=== PATIENT | female | born 2000 | race Caucasian/White ===

== ENCOUNTER → 2019-04-02 | Day surgery (SDC) | payer BC ==
[2019-03-29 15:04] VITALS: BMI 24.3
[~2019-04-02] MED LIST: BUPIVACAINE (PF) 0.5% 30 ML VIAL SQ ONE; DEXAMETHASONE SOD PHOSPHATE 10 MG/ML 1 ML VIAL IV ONE; GLYCOPYRROLATE 0.2 MG/ML 2 ML VIAL ONE; HEPARIN SODIUM,PORCINE 5,000 UNIT/ML 1 ML VIAL SQ ONE; HYDROmorphone 0.5 MG/0.5 ML SYRINGE IVP PRN; KETAMINE 10 MG/ML 20 ML VIAL ONE; LACTATED RINGERS 1,000 ML IV SCH; LIDOCAINE 1% 20 ML VIAL (10MG/ML) FOR IV START SQ ONE; LIDOCAINE 1% INJ 10MG/ML (20 ML MDV) ONE; MIDAZOLAM 2 MG/2 ML VIAL IV PRN; MIDAZOLAM 2 MG/2 ML VIAL ONE; ONDANSETRON 4 MG/2 ML VIAL IVP ONE; PROPOFOL 10 MG/ML 20 ML VIAL IV ONE; fentaNYL (PF) 50 MCG/ML 2 ML AMP ONE; metroNIDAZOLE-NS PMX 500 MG in SALINE 1 100ML.BAG IVPB ONE
[2019-04-02 09:56] VITALS: RESP 16
--- NOTE | 2019-04-02 11:16 | P.GSHP ---
History of Present Illness H&P Date: 04/02/19 Chief Complaint: Pilonidal cyst This a 18-year-old female with history of pilonidal cyst. Patient resents today for excision of pilonidal cyst Past Medical History Past Medical History: Asthma Additional Past Medical History / Comment(s): pilonidal cyst, hx of childhood asthma, hx of kidney stones, hx of pre-ca moles History of Any Multi-Drug Resistant Organisms: None Reported Past Surgical History: Adenoidectomy, Tonsillectomy Additional Past Surgical History / Comment(s): broken nose repaired, moles removed Past Anesthesia/Blood Transfusion Reactions: No Reported Reaction Smoking Status: Never smoker Medications and Allergies Home Medications Medication Instructions Recorded Confirmed Type No Known Home Medications 03/29/19 04/02/19 History Allergies Allergy/AdvReac Type Severity Reaction Status Date / Time procaine [From Novocain] Allergy throat and Verified 04/02/19 09:41 mouth itching Surgical - Exam Vital Signs Temp Pulse Resp BP Pulse Ox 98.3 F 75 16 125/66 99 04/02/19 09:55 04/02/19 09:55 04/02/19 09:55 04/02/19 09:55 04/02/19 09:55 - General well developed, well nourished, no distress - Eyes PERRL - ENT normal pinna - Neck no masses - Respiratory normal expansion - Cardiovascular Rhythm: regular - Abdomen Abdomen: soft, non tender Assessment and Plan Assessment: Pilonidal cyst. We'll perform excision. Patient aware that the wound will be packed after surgery. Patient will need to provide local wound care for wound healing.
[2019-04-02 12:03] VITALS: TEMP 97.8
--- NOTE | 2019-04-02 13:01 | P.OP ---
Date of Procedure: 04/02/19 Preoperative Diagnosis: Pilonidal cyst Postoperative Diagnosis: Pilonidal cyst with abscess Procedure(s) Performed: Excision pilonidal cyst Anesthesia: MAC Surgeon: Eric Valdes Estimated Blood Loss (ml): 5 Pathology: other (Pilonidal cyst) Condition: stable Description of Procedure: The patient's placed on the operative table in the jackknife prone position she received IV local sedation. Her pyrosis was prepped and draped usual sterile fashion. Elliptical skin incision was made around the cyst after it was adequately anesthetized 1% local Xylocaine. Then using cautery and phimosis excised. The Bovie is used for hemostasis. The wound was packed with wet-to-dry Kerlix. Patient top she will was sent to recovery room in stable condition.
[2019-04-02 13:16] VITALS: BP 102/65; PULSE 70
== END | disposition home or self-care (01) ==
LOC: OR 09:30
PROVIDERS: ATTEND Surgery
DX: L05.01 Pilonidal cyst with abscess (principal); J45.909 Unspecified asthma, uncomplicated; Z88.4 Allergy status to anesthetic agent; Z87.442 Personal history of urinary calculi; Z87.2 Personal history of diseases of the skin and subcutaneous tissue; Z90.89 Acquired absence of other organs; Z98.890 Other specified postprocedural states
CPT/HCPCS: 81025; 88304; 11770; J2250; J1644; J1100; J0690; J2405; J2001; J3010; J2704

== ENCOUNTER 2022-11-11 07:14 | Emergency (ER) | payer BC ==
[2022-11-11 07:23] VITALS: BP 123/85; PULSE 77; RESP 16; TEMP 97.7
[2022-11-11] MEDS ORDERED: SODIUM CHLORIDE 0.9% 500 ML 500 ML IV STA (07:34)
--- NOTE | 2022-11-11 07:46 | ED ---
General Adult HPI - General Chief complaint: Abdominal Pain Stated complaint: Side pain left Time Seen by Provider: 11/11/22 07:20 Source: patient, RN notes reviewed, old records reviewed Mode of arrival: ambulatory Limitations: no limitations - History of Present Illness Initial comments: This is a 21-year-old female who presents emergency department stating she woke up at 5:00 in the morning with left-sided flank pain. Patient states is quite severe when it comes on with any kind of goes away. Patient states been intermittent ever since. Patient states she's had some pink urine. Patient states she's had a history of kidney stones in the past and reminds of kidney stones. Patient denies any urinary frequency or dysuria but she does have he maturia. Patient denies any vomiting or nausea. Patient states currently she took 2 Aleve and is feeling better. Patient denies any fevers chills per patient denies any anterior abdominal pain. - Related Data Previous Rx's Medication Instructions Recorded Docusate [Colace] 100 mg PO BID #20 capsule 04/02/19 HYDROcodone/APAP 5-325MG [[place] 1 tab PO Q6HR PRN #10 tab 04/02/19 5-325] Ketorolac [Toradol] 10 mg PO Q6HR #15 tab 11/11/22 Allergies Allergy/AdvReac Type Severity Reaction Status Date / Time procaine [From Novocain] Allergy throat and Verified 11/11/22 07:23 mouth itching Review of Systems ROS Statement: Those systems with pertinent positive or pertinent negative responses have been documented in the HPI. ROS Other: All systems not noted in ROS Statement are negative. Past Medical History Past Medical History: Asthma Additional Past Medical History / Comment(s): pilonidal cyst, hx of childhood asthma, hx of kidney stones, hx of pre-ca moles History of Any Multi-Drug Resistant Organisms: None Reported Past Surgical History: Adenoidectomy, Tonsillectomy Additional Past Surgical History / Comment(s): broken nose repaired, moles removed Past Anesthesia/Blood Transfusion Reactions: No Reported Reaction Past Psychological History: No Psychological Hx Reported Smoking Status: Never smoker Past Alcohol Use History: Occasional Past Drug Use History: None Reported General Exam - General Exam Comments Initial Comments: GENERAL: Patient is well-developed and well-nourished. Patient is nontoxic and well- hydrated and is in mild distress. ENT: Neck is soft and supple. No significant lymphadenopathy is noted. Oropharynx is clear. Moist mucous membranes. Neck has full range of motion without eliciting any pain. EYES: The sclera were anicteric and conjunctiva were pink and moist. Extraocular movements were intact and pupils were equal round and reactive to light. Eyelids were unremarkable. PULMONARY: Unlabored respirations. Good breath sounds bilaterally. No audible rales rhonchi or wheezing was noted. CARDIOVASCULAR: There is a regular rate and rhythm without any murmurs gallops or rubs. ABDOMEN: Soft and nontender with normal bowel sounds. SKIN: Skin is clear with no lesions or rashes and otherwise unremarkable. NEUROLOGIC: Patient is alert and oriented x3. Cranial nerves II through XII are grossly intact. Motor and sensory are also intact. Normal speech, volume and content. Symmetrical smile. MUSCULOSKELETAL: Normal extremities with adequate strength and full range of motion. No lower extremity swelling or edema. No calf tenderness. LYMPHATICS: No significant lymphadenopathy is noted PSYCHIATRIC: Normal psychiatric evaluation. Limitations: no limitations Course Vital Signs 11/11/22 07:18 Temperature 97.7 F Pulse Rate 77 Respiratory 16 Rate Blood Pressure 123/85 O2 Sat by Pulse 98 Oximetry Medical Decision Making - Medical Decision Making Was pt. sent in by a medical professional or institution (, PA, PHARMACY CUSTOMER CARE SPECIALIST, urgent care, hospital, or detention...) When possible be specific @ -No Did you speak to anyone other than the patient for history (EMS, parent, family, police, friend...)? What history was obtained from this source @ -No Did you review nursing and triage notes (agree or disagree)? Why? @ -I reviewed and agree with nursing and triage notes Were old charts reviewed (outside hosp., previous admission, EMS record, old EKG, old radiological studies, urgent care reports/EKG's, detention records)? Report findings @ -No old charts were reviewed Differential Diagnosis (chest pain, altered mental status, abdominal pain women, abdominal pain men, vaginal bleeding, weakness, fever, dyspnea, syncope, headache, dizziness, GI bleed, back pain, seizure, CVA, palpatations, mental health, musculoskeletal)? @ -Differential Abdominal Pain Women: Appendicitis, Cholecystitis, diverticulosis, ischemic bowel, pancreatitis, hepatitis, UTI, gastroenteritis, AAA, incarcerated hernia, bowel obstruction, constipation, inflammatory bowel, hepatitis, peptic ulcer disease, splenic infarction, perforated viscus, vulvitis, ovarian torsion, PID, kidney stone, placenta abruption, this is not meant to be an all-inclusive list EKG interpreted by me (3pts min.). @ -As above X-rays interpreted by me (1pt min.). @ -None done CT interpreted by me (1pt min.). @ -None done U/S interpreted by me (1pt. min.). @ -None done What testing was considered but not performed or refused? (CT, X-rays, U/S, labs)? Why? @ -Considered a computed tomography scan but the patient had a history of kidney stones and a prior kidney stone was seen on the CAT scan I did not want a radiator unnecessarily. What meds were considered but not given or refused? Why? @ -None Did you discuss the management of the patient with other professionals (professionals i.e. , PA, PHARMACY CUSTOMER CARE SPECIALIST, lab, RT, psych nurse, healthcare social worker, supervisor sanding, teacher, tactical deception plans officer, pillowcase turner)? Give summary @ -No Was smoking cessation discussed for >3mins.? @ -No Was critical care preformed (if so, how long)? @ -No Were there social determinants of health that impacted care today? How? (Homelessness, low income, unemployed, alcoholism, drug addiction, transportation, low edu. Level, literacy, decrease access to med. care, senior care, rehab)? @ -No Was there de-escalation of care discussed even if they declined (Discuss DNR or withdrawal of care, Hospice)? DNR status @ -No What co-morbidities impacted this encounter? (DM, HTN, Smoking, COPD, CAD, Cancer, CVA, ARF, Chemo, Hep., AIDS, mental health diagnosis, sleep apnea, morbid obesity)? @ -None Was patient admitted / discharged? Hospital course, mention meds given and route, prescriptions, significant lab abnormalities, going to OR and other pertinent info. @ -Patient was relatively comfortable throughout her ED course. Patient had blood in the urine no signs of infection and so I believe she is having a kidney stone is moving. Patient had a history of this. I will send her home with some Toradol she can follow-up if pain continues Undiagnosed new problem with uncertain prognosis? @ -No Drug Therapy requiring intensive monitoring for toxicity (Heparin, Nitro, Insulin, Cardizem)? @ -No Were any procedures done? @ -No Diagnosis/symptom? @ -Kidney stone Acute, or Chronic, or Acute on Chronic? @ -Acute Uncomplicated (without systemic symptoms) or Complicated (systemic symptoms)? @ -Uncomplicated Side effects of treatment? @ -No Exacerbation, Progression, or Severe Exacerbation? @ -No Poses a threat to life or bodily function? How? (Chest pain, [place], [place], pneumonia, PE, COPD, DKA, ARF, appy, cholecystitis, CVA, Diverticulitis, Homicidal, Suicidal, threat to staff... and all critical care pts) @ -No - Lab Data Result diagrams: 11/11/22 07:40 11/11/22 07:40 Lab Results 11/11/22 11/11/22 11/11/22 Range/Units 07:40 07:40 07:40 WBC 5.7 (3.8-10.6) k/uL RBC 4.32 (3.80-5.40) m/uL Hgb 12.9 (11.4-16.0) gm/dL Hct 39.6 (34.0-46.0) % MCV 91.7 (80.0-100.0) fL MCH 29.9 (25.0-35.0) pg MCHC 32.6 (31.0-37.0) g/dL RDW 13.3 (11.5-15.5) % Plt Count 286 (150-450) k/uL MPV 8.3 Neutrophils % 77 % Lymphocytes % 14 % Monocytes % 6 % Eosinophils % 1 % Basophils % 0 % Neutrophils # 4.4 (1.3-7.7) k/uL Lymphocytes # 0.8 L (1.0-4.8) k/uL Monocytes # 0.3 (0-1.0) k/uL Eosinophils # 0.0 (0-0.7) k/uL Basophils # 0.0 (0-0.2) k/uL Sodium 139 (137-145) mmol/L Potassium 3.8 (3.5-5.1) mmol/L Chloride 106 (98-107) mmol/L Carbon Dioxide 25 (22-30) mmol/L Anion Gap 8 mmol/L BUN 8 (7-17) mg/dL Creatinine 0.74 (0.52-1.04) mg/dL Est GFR (CKD-EPI)AfAm >90 (>60 ml/min/1.73 sqM) Est GFR (CKD-EPI)NonAf >90 (>60 ml/min/1.73 sqM) Glucose 101 H (74-99) mg/dL Calcium 8.9 (8.4-10.2) mg/dL Total Bilirubin 0.4 (0.2-1.3) mg/dL AST 18 (14-36) U/L ALT 18 (4-34) U/L Alkaline Phosphatase 47 (38-126) U/L Total Protein 7.4 (6.3-8.2) g/dL Albumin 4.3 (3.5-5.0) g/dL Amylase 41 (30-110) U/L Lipase 55 (23-300) U/L Urine Color Dark Brown Urine Appearance Cloudy H (Clear) Urine pH 5.5 (5.0-8.0) Ur Specific [place] 1.029 (1.001-1.035) Urine Protein 2+ H (Negative) Urine Glucose (UA) Negative (Negative) Urine Ketones 1+ H (Negative) Urine Blood Large H (Negative) Urine Nitrite Negative (Negative) Urine Bilirubin Negative (Negative) Urine Urobilinogen <2.0 (<2.0) mg/dL Ur Leukocyte Esterase Moderate H (Negative) Urine RBC >182 H (0-5) /hpf Urine WBC 12 H (0-5) /hpf Ur Squamous Epith Cells 4 (0-4) /hpf Urine Mucus Many H (None) /hpf Urine HCG, Qual (Not Detectd) 11/11/22 Range/Units 07:40 WBC (3.8-10.6) k/uL RBC (3.80-5.40) m/uL Hgb (11.4-16.0) gm/dL Hct (34.0-46.0) % MCV (80.0-100.0) fL MCH (25.0-35.0) pg MCHC (31.0-37.0) g/dL RDW (11.5-15.5) % Plt Count (150-450) k/uL MPV Neutrophils % % Lymphocytes % % Monocytes % % Eosinophils % % Basophils % % Neutrophils # (1.3-7.7) k/uL Lymphocytes # (1.0-4.8) k/uL Monocytes # (0-1.0) k/uL Eosinophils # (0-0.7) k/uL Basophils # (0-0.2) k/uL Sodium (137-145) mmol/L Potassium (3.5-5.1) mmol/L Chloride (98-107) mmol/L Carbon Dioxide (22-30) mmol/L Anion Gap mmol/L BUN (7-17) mg/dL Creatinine (0.52-1.04) mg/dL Est GFR (CKD-EPI)AfAm (>60 ml/min/1.73 sqM) Est GFR (CKD-EPI)NonAf (>60 ml/min/1.73 sqM) Glucose (74-99) mg/dL Calcium (8.4-10.2) mg/dL Total Bilirubin (0.2-1.3) mg/dL AST (14-36) U/L ALT (4-34) U/L Alkaline Phosphatase (38-126) U/L Total Protein (6.3-8.2) g/dL Albumin (3.5-5.0) g/dL Amylase (30-110) U/L Lipase (23-300) U/L Urine Color Urine Appearance (Clear) Urine pH (5.0-8.0) Ur Specific [place] (1.001-1.035) Urine Protein (Negative) Urine Glucose (UA) (Negative) Urine Ketones (Negative) Urine Blood (Negative) Urine Nitrite (Negative) Urine Bilirubin (Negative) Urine Urobilinogen (<2.0) mg/dL Ur Leukocyte Esterase (Negative) Urine RBC (0-5) /hpf Urine WBC (0-5) /hpf Ur Squamous Epith Cells (0-4) /hpf Urine Mucus (None) /hpf Urine HCG, Qual Not Detected (Not Detectd) Disposition Clinical Impression: Kidney stone Disposition: HOME SELF-CARE Condition: Good Instructions (If sedation given, give patient instructions): Kidney Stones (ED) Prescriptions: Ketorolac [Toradol] 10 mg PO Q6HR #15 tab Is patient prescribed a controlled substance at d/c from ED?: No Referrals: Lynnette Barajas MD [Primary Care Provider] - 1-2 days Time of Disposition: 08:30
[2022-11-11 08:08] LABS: Appearance,Urine Cloudy (Clear); Bilirubin,Urine Negative (Negative); Blood,Urine Large (Negative); Color,Urine Dark Brown; Glucose,Urine (UA) Negative (Negative); Ketones,Urine 1+ (Negative); Leukocyte Esterase,Urine Moderate (Negative); Mucus,Urine Many /hpf; Nitrite,Urine Negative (Negative); PH, Urine 5.5 (5.0-8.0); Protein,Urine 2+ (Negative); RBC,Urine >182 /hpf (0-5); Specific Gravity,Urine 1.029 (1.001-1.035); Squamous Epithelial Cell,Urine 4 /hpf (0-4); Urobilinogen,Urine <2.0 mg/dL (<2.0); WBC,Urine 12 /hpf (0-5)
[2022-11-11 08:12] LABS: ALT 18 U/L (4-34); AST 18 U/L (14-36); African American GFR (CKD) >90 (>60 ml/min/1.73 sqM); Albumin 4.3 g/dL (3.5-5.0); Alkaline Phosphatase 47 U/L (38-126); Amylase 41 U/L (30-110); Anion Gap 8 mmol/L; Blood Urea Nitrogen 8 mg/dL (7-17); Calcium 8.9 mg/dL (8.4-10.2); Carbon Dioxide 25 mmol/L (22-30); Chloride 106 mmol/L (98-107); Glucose 101 mg/dL (74-99); Lipase 55 U/L (23-300); Non-African American GFR(CKD) >90 (>60 ml/min/1.73 sqM); Potassium 3.8 mmol/L (3.5-5.1); Sodium 139 mmol/L (137-145); Total Bilirubin 0.4 mg/dL (0.2-1.3); Total Protein 7.4 g/dL (6.3-8.2)
[2022-11-11 08:18] LABS: Basophils % (A) 0 %; Eosinophils % (A) 1 %; HCT 39.6 % (34.0-46.0); HGB 12.9 gm/dL (11.4-16.0); Lymphocytes # (A) 0.8 k/uL (1.0-4.8); Lymphocytes % (A) 14 %; MCH 29.9 pg (25.0-35.0); MCHC 32.6 g/dL (31.0-37.0); MCV 91.7 fL (80.0-100.0); Mean Platelet Volume 8.3; Monocytes # (A) 0.3 k/uL (0-1.0); Monocytes % (A) 6 %; Neutrophils # (A) 4.4 k/uL (1.3-7.7); Neutrophils % (A) 77 %; Platelet Count 286 k/uL (150-450); RBC 4.32 m/uL (3.80-5.40); RDW 13.3 % (11.5-15.5); WBC 5.7 k/uL (3.8-10.6)
== END 2022-11-11 08:39 | disposition home or self-care (01) ==
LOC: EC 07:14
DX: N20.0 Calculus of kidney (principal); Z88.4 Allergy status to anesthetic agent; J45.909 Unspecified asthma, uncomplicated
CPT/HCPCS: 36415; 80053; 81001; 81025; 82150; 83690; 85025; 96360; 99283